=== PATIENT | female | born 1970 | race Caucasian/White ===

== ENCOUNTER → 2018-07-20 | Outpatient (CLI) | payer BC ==
[~2018-07-20] MED LIST: DOXYCYCLINE 10100 MG PO; LEVAQUIN 5500 MG/TA1 PO; NORCO 325 MG-51 TAB PO; TESSALON PERLE200 MG PO; ULTRAM 50MG TAB50 MG PO
== END ==
LOC: MC.RAD 07-19 13:00
DX: Z12.31 Encounter for screening mammogram for malignant neoplasm of breast (principal)

== ENCOUNTER → 2019-02-22 | Outpatient (REF) | LOC: ZLAB.WCH 09:14 | DX: Z01.89 Encounter for other specified special examinations (principal) ==

== ENCOUNTER → 2020-06-04 | Outpatient (CLI) | payer BC | LOC: ZCOL.LAB 15:11 | DX: Z20.828 Contact with and (suspected) exposure to other viral communicable diseases (principal) ==

== ENCOUNTER → 2020-07-24 | Outpatient (CLI) | payer BC | LOC: MC.RAD 08:39 | DX: Z12.31 Encounter for screening mammogram for malignant neoplasm of breast (principal); N63.10 Unspecified lump in the right breast, unspecified quadrant; N63.20 Unspecified lump in the left breast, unspecified quadrant ==

== ENCOUNTER → 2020-08-14 | Outpatient (CLI) | payer BC | LOC: MC.RAD 13:00 | DX: N63.10 Unspecified lump in the right breast, unspecified quadrant (principal); N63.20 Unspecified lump in the left breast, unspecified quadrant ==

== ENCOUNTER → 2020-08-27 | Outpatient (CLI) | payer BC | LOC: MC.RAD 09:50 | DX: N63.10 Unspecified lump in the right breast, unspecified quadrant (principal); N63.20 Unspecified lump in the left breast, unspecified quadrant ==

== ENCOUNTER 2020-09-05 08:16 | Day surgery (SDC) | payer BC ==
[~2020-09-05] VITALS: Ht 172.7 cm; Wt 89.8 kg
[2020-09-05 08:36] VITALS: BP 146/107; PULSE 95; TEMP 98.5
[2020-09-05 10:20] VITALS: BP 164/105; PULSE 80; TEMP 98.5
--- NOTE | 2020-09-05 10:20 | NUR ---
TO RM 4 PER CART FROM ENDOSCOPY. ALERT ORIENTED X3, TALKING TO AND STAFF. AMBULATED TO RECLINER WITH ASSIST. RECEIVED WATER AND DENIES WANTING ANYTHING TO EAT.
--- NOTE | 2020-09-05 10:20 | NUR ---
TO BAY 4 PER CART FROM ENDOSCOPY. ALERT ORIENTED X3, TALKING TO STAFF. AMBULATED TO RECLINER WITH ASSIST AND TOLERATED WELL. B/P ELEVATED AND WILL CONTINUE TO MONITOR. WILL INFORM DR HUI. RECEIVED BLACK COFFEE PER PATIENT REQUEST.
[2020-09-05 10:35] VITALS: BP 152/98; PULSE 77
[2020-09-05 10:50] VITALS: BP 140/100; PULSE 71
--- NOTE | 2020-09-05 10:50 | NUR ---
DISCONTINUED IV AND INT- CATHETER INTACT PATIENT GETTING DRESSED AND RECEIVED 2ND CUP COFFEE.
--- NOTE | 2020-09-05 11:00 | NUR ---
DR HUI INTO TALK WITH PATIENT AND HER .
--- NOTE | 2020-09-05 11:15 | NUR ---
RECEIVED DISCHARGE INSTRUCTIONS AND VERBALIZED UNDERSTANDING.
--- NOTE | 2020-09-05 11:30 | NUR ---
DISCHARGED PER WC BY NURSING STAFF TO PRIVATE CAR IN CARE OF
== END 2020-09-05 11:50 | disposition home or self-care (01) ==
LOC: SDCO 08:16
DX: Z12.11 Encounter for screening for malignant neoplasm of colon (principal); D12.2 Benign neoplasm of ascending colon; K57.30 Diverticulosis of large intestine without perforation or abscess without bleeding; Z87.891 Personal history of nicotine dependence; Z88.0 Allergy status to penicillin; Z90.710 Acquired absence of both cervix and uterus; F33.42 Major depressive disorder, recurrent, in full remission
CPT/HCPCS: J2704; J7120

== ENCOUNTER → 2021-08-19 | Outpatient (CLI) | payer BC | LOC: MC.RAD 08:15 | DX: Z12.31 Encounter for screening mammogram for malignant neoplasm of breast (principal) ==

== ENCOUNTER 2021-12-01 19:28 | Emergency (ER) | payer BC ==
[~2021-12-01] VITALS: Ht 170.2 cm; Wt 90.9 kg
[2021-12-01 21:09] LABS: COLLECTION METHOD CLEAN CATCH
[2021-12-01 21:19] LABS: BASO # 0.1 K/mm3 (0.0-0.2); BASO % 0.3 % (0.0-2.0); EOS # 0.1 K/mm3 (0.0-0.7); EOS % 0.5 % (0.0-4.0); GRAN # 11.4 K/mm3 (1.4-6.5); GRAN % 77.9 % (42.2-75.2); HEMATOCRIT 40.5 % (37.0-47.0); LYMPH % 13.7 % (20.0-51.0); MEAN CELL VOLUME 89 fl (80.0-100.0); MEAN CORPUSCULAR HEMOGLOBIN 31 pg (27-31); MEAN CORPUSCULAR HGB CONC 35 g/dl (33.0-37.0); MEAN PLATELET VOLUME 10.2 fl (7.4-10.4); MONO # 1.1 K/mm3 (0.1-0.6); MONO % 7.2 % (1.7-9.3); PLATELET COUNT 269 K/mm3 (130-400); RED BLOOD COUNT 4.56 M/mm3 (4.10-5.30); REDCELL DISTRIBUTION WIDTH-CV 11.8 % (11.5-14.5)
[2021-12-01 21:20] LABS: MUCOUS Present (NOT PRESENT); PH 5 (5-8); URINE APPEARANCE Hazy (CLEAR/HAZY); URINE BACTERIA Rare /hpf (NONE SEEN); URINE BILIRUBIN Negative (NEGATIVE); URINE BLOOD 2+ (NEGATIVE); URINE COLOR Yellow (YELLOW); URINE GLUCOSE Negative (NEGATIVE); URINE KETONE Negative (NEGATIVE); URINE LEUKOCYTE ESTERASE Negative (NEGATIVE); URINE NITRATE Negative (NEGATIVE); URINE PROTEIN(semi-quant) Negative (NEGATIVE); URINE UROBILINOGEN Negative (NEGATIVE)
[2021-12-01 21:44] LABS: ALBUMIN 3.6 gm/dL (3.5-5.0); BILIRUBIN,TOTAL 1.1 mg/dL (0.2-1.2); CALCIUM 9.4 mg/dL (8.4-10.2); CREATININE, serum 0.85 mg/dL (0.57-1.11); POTASSIUM 3.6 mmol/L (3.5-4.5); TOTAL PROTEIN 6.8 gm/dL (6.2-8.1)
[2021-12-01] MEDS ORDERED: CIPRO 500MG TA500 MG PO (22:56)
[2021-12-01] MEDS ORDERED: PERCOCET 325 MG1 TA2 PO (22:56)
[2021-12-01] MEDS ORDERED: FLAGYL500 MG PO (22:56)
[2021-12-02 00:30] VITALS: BP 138/77; PULSE 78; TEMP 98.6
== END 2021-12-02 00:30 | disposition home or self-care (01) ==
LOC: COL.ER 19:28
PROVIDERS: Physician Assistant
DX: K57.32 Diverticulitis of large intestine without perforation or abscess without bleeding (principal); Z90.710 Acquired absence of both cervix and uterus; Z88.0 Allergy status to penicillin
CPT/HCPCS: J1956; J2270; J2405; J7030; Q9967

== ENCOUNTER 2021-12-24 07:58 | Day surgery (SDC) | payer BC ==
[~2021-12-24] VITALS: Ht 170.2 cm; Wt 94.7 kg
[~2021-12-24 07:58] MED LIST changes: +CIPRO 500MG TA500 MG PO; +FLAGYL500 MG PO; +PERCOCET 325 MG1 TA2 PO
[2021-12-24 09:02] VITALS: BP 148/101; PULSE 82; TEMP 98.3
[2021-12-24 10:16] VITALS: BP 128/84; PULSE 80
--- NOTE | 2021-12-24 10:16 | NUR ---
Patient returns to room 1 per cart from surgery accompanied by Lacey KUMARI and Rukhsana HEAD. Patient is awake and alert. Left foot oj wrap dressing clean and dry. Post op shoe in place. IV fluids infusing and siderails up x2. Allowed to rest.
[2021-12-24 10:31] VITALS: BP 133/86; PULSE 75
--- NOTE | 2021-12-24 10:31 | NUR ---
Drinking water. Bulky oj wrap dressing clean and dry.
[2021-12-24 10:46] VITALS: BP 143/88; PULSE 73
--- NOTE | 2021-12-24 10:46 | NUR ---
IV discontinued and site is free of redness or swelling. Assisted with dressing. Spouse notified patient will be ready for discharge.
--- NOTE | 2021-12-24 11:10 | NUR ---
Dismissal instructions given and patient verbalizes understanding of these. Provided office number for questions and concerns.
--- NOTE | 2021-12-24 11:14 | NUR ---
Patient dismissed to home driven by spouse and taken to vehicle per wheelchair and assisted into vehicle. Dismissal instructions in hand.
== END 2021-12-24 11:14 | disposition home or self-care (01) ==
LOC: SDCO 07:58
DX: S93.105A Unspecified dislocation of left toe(s), initial encounter (principal); E66.9 Obesity, unspecified; I10 Essential (primary) hypertension; R31.29 Other microscopic hematuria; F32.A Depression, unspecified; Z90.710 Acquired absence of both cervix and uterus; Z90.89 Acquired absence of other organs; Z79.899 Other long term (current) drug therapy; Z87.891 Personal history of nicotine dependence
CPT/HCPCS: J2250; J2704; J3010; J7120

== ENCOUNTER → 2023-10-19 | Outpatient (CLI) | payer BC ==
[~2023-10-19] MED LIST changes: +HCTZ 25MG TAB25 MG PO; +NORVASC 10MG10 MG PO
== END ==
LOC: MC.RAD 09:12
DX: Z12.31 Encounter for screening mammogram for malignant neoplasm of breast (principal)